=== PATIENT | female | born 1990 | race Native Hawaiian/Other Pacific Islander ===

== ENCOUNTER 2020-07-29 11:11 | Outpatient (CLI) | payer OTHER, BC | END 2020-07-29 21:53 | disposition home or self-care (01) | LOC: US 11:11 | PROVIDERS: ATTEND Nurse Practitioner Family | DX: R10.11 Right upper quadrant pain (principal) ==

== ENCOUNTER 2020-08-24 08:07 | Outpatient (CLI) | payer OTHER, BC | END 2020-08-24 20:55 | disposition home or self-care (01) | LOC: NM 08:07 | PROVIDERS: ATTEND Nurse Practitioner | DX: R10.11 Right upper quadrant pain (principal) | CPT/HCPCS: A9537 ==